=== PATIENT | male | born 2000 | race Caucasian/White ===

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

== ENCOUNTER 2024-12-03 09:26 | Emergency (ER) | payer BC, SELFPAY ==
--- NOTE | ~2024-12-03 | XR_ITS ---
Portable chest x-ray Comparison: None Clinical History: Chest pain Findings: Lungs are clear, without focal consolidation or pleural effusion. Cardiomediastinal silho uette is unremarkable. Bones and soft tissues are unremarkable. Impression: Normal chest. Reviewed, dictated and finalized at location . [facility] EPIDEMIOLOGIST Impression: Normal chest.
--- NOTE | ~2024-12-03 | CT_ITS ---
Non-contrast Head CT History: Dizziness, vertigo Technique: Axial non-contrast imaging of the brain was performed. Dose reduction technique was used on this scan by utilizing automated exposure control and iterative reconstruction technique. The dose -length product (DLP) was 605.33 mGy-cm. Findings: There is no evidence of intracranial hemorrhage, mass lesion, or acute infarct. Brain par enchyma appears normal. The ventricles and subarachnoid spaces are normal in size. The calvarium ap pears normal. The visualized paranasal sinuses and mastoid air cells are clear. Impression: No significant abnormality seen. Reviewed, dictated and finalized at location . [facility] Impression: No significant abnormality seen.
[2024-12-03 09:26] VITALS: BP 139/64; PULSE 92; RESP 16; TEMP 36.5; O2SAT 100
--- OUTSIDE RECORDS SUMMARY | 2024-12-03 09:34 | XMS_ITS ---
Author Organization [facility] Address [address] [place] [address] Care Team Providers Care Operating Room Surgical Technician Name Role Phone Jenna Robb Primary Care Provider [phone] Jenna Singh Unavailable [phone] Allergies Allergen (clinical drug ingredient) Drug/Non Drug Allergy documented on EMR Reaction Allergy Type Onset Date Status doxycycline Doxycycline sensitve stomach, nauseous Drug Allergy 09/16/2021 Active Pollen (e.g. tree, grass) swelling Allergy 03/15/2021 Active REASON FOR VISIT 1 month follow up Medications Medication SIG (Take, Route, Frequency, Duration) Notes Start Date End Date Status traZODone HCl 50 MG TAKE 1 TABLET BY MOUTH EVERYDAY AT BEDTIME; Duration: 90 Active Atovaquone-Proguanil HCl 250-100 MG 1 tablet Orally Once a day; Duration: 20 days Start 2 days before trip, continue daily while on the trip and 7 days after trip 11/13/2024 12/03/2024 Active traZODone HCl 100 MG 1 tablet at bedtime Orally Once a day; Duration: 30 days 11/20/2024 Active FLUoxetine HCl 20 MG 1 capsule Orally daily; Duration: 30 days 10/27/2024 Active ProAir RespiClick 108 (90 Base) MCG/ACT 2 Inhalation every 4-6 hours; Duration: 0 05/23/2024 Active Multivitamin oral; Duration: 0 *Pick strength-form from [employer] for eRX* 08/31/2021 Active ZyrTEC Allergy 10 MG 1 Oral every day; Duration: 0 03/15/2021 Active Vital Signs Temperature 98 degrees Fahrenheit 11/20/2024 Blood pressure systolic 128 mm Hg 11/20/19 25 Blood pressure diastolic 62 mm Hg 025 Heart Rate 85 /min 11/20/2024 Height 66.00 in 11/20/2024 Weight 167.9 lbs 11/20/2024 BMI 27.1 kg/m2 11/20/2024 Oximetry 99 % 11/20/2024 Height-cm 167.64 cm 11/20/2024 Weight-kg 76.16 kg 11/20/2024 Encounters Encounter Location Date Provider Diagnosis [address] [address] 11/20/2024 Jenna Singh Major depressive disorder, single episode, mild F32.0 ; Anxiety disorder, unspecified F41.9 and Chronic insomnia F51.04 Assessments Encounter Date Diagnosis (ICD Code) Assessment Notes Treatment Notes Treatment Clinical Notes 11/20/2024 Major depressive disorder, single episode, mild (ICD-10 - F32.0) 11/20/2024 Anxiety disorder, unspecified (ICD-10 - F41.9) - Anxiety and panic attacks persist, though less frequent with fluoxetine. No significant side effects reported except for initial nausea. - Discussed adding Hydroxyzine as needed QID to help with anxiety and to take one for sleep, but he is not ready to add another medicaton at this time. - Increase fluoxetine dose from 10 mg to 20 mg daily. Monitor for side effects.- Follow-up in one month to assess effectiveness and side effects. 11/20/2024 Chronic insomnia (ICD-10 - F51.04) - Trazodone at current dose not fully effective for sleep.- Increase trazodone dose to 100 mg at night. - Consider hydroxyzine or even gaunfacine as an alternative or adjunct if needed. - Discussed potential future use of benzodiazepines if necessary. Plan Of Treatment Medication Medication Name Sig Start Date Stop Date Notes traZODone HCl 100 MG 1 tablet at bedtime Orally Once a day; Duration: 30 days 11/20/2024 FLUoxetine HCl 20 MG 1 capsule Orally da mao; Duration: 30 days 10/27/2024 Treatment Notes Assessment Notes Anxiety disorder, unspecified - Anxiety and panic attacks persist, though less frequent with fluoxetine. No significant side effects reported except for initial nausea. - Discussed adding Hydroxyzine as needed QID to help with anxiety and to take one for sleep, but he is not ready to add another medicaton at this time. - Increase fluoxetine dose from 10 mg to 20 mg daily. Monitor for side effects.- Follow-up in one month to assess effectiveness and side effects. Chronic insomnia - Trazodone at current dose not fully effective for sleep.- Increase trazodone dose to 100 mg at night. - Consider hydroxyzine or even gaunfacine as an alternative or adjunct if needed. - Discussed potential future use of benzodiazepines if necessary. Next Appt Details Follow Up: 1 Month, Reason: Provider Name:Jenna Menchaca er, 12/18/2024 03:45:00 PM, [address] [facility], [place], [address], [phone] History and Physical Notes * Examination Category Sub-Category Detail Notes General Examination General appearance: alert, p leasant, well-nourished and in no acute distress Heart: regular rate and rhy thm without murmurs, gallops, clicks or rubs, S1 and S2 are normal and no S3 and S4 gallop Lungs: clear to auscultatio n bilaterally, with good air movement and no rales, rhonchi or wheezes Skin: warm and dry; good s kin turgor Psych: normal affect / mood , maintains good eye contact, with good judgement and insight, thought process is logical and goal directed without suidical ideation or delusions Progress Notes * Krystal CARREONOB:2000 ([age] yo M)Acc No.[id number]:11/20/2024 Progress Notes Patient: Doe Dickson Provider: Kevyn Singh NP :2000 A ge:24 Y S ex:Male Date:11/20/2024 Phone: Address:[address] [place], [place] [phone] Pcp:Jenna Robb Subjective: * Chief Complaints: * 1 . 1 month follow up. * HPI: H PI: Doe is here for a 1 month follow up for insomnia and anxiety/depression. He reports that sleep issues have not improved with the medication prescribed. Currently taking trazodone, 50 mg tablet at night, and fluoxetine, 10 mg daily. Noticed some improvement with fluoxetine but still experiences anxiety and panic attacks, particularly in large groups/crowds. Panic attacks have decreased in frequency but are still present. Experienced nausea for a few days after starting fluoxetine but no longer has this side effect. Consumes alcohol occasionally, having a beer now and then, but does not consume caffeine and does not smoke. He denies any suicidal or homicidal ideations. * ROS: S ee HPI. * Medical History: * Social History: M igrated Social History: M igrated Social History: Marital status:Single,Tobacco history:Never smoker. * Medications: T aking ZyrTEC Allergy 10 MG Tablet 1 Oral every day , Taking Multivitamin oral , Notes to Pharmacist: *Pick strength-form from [employer] for eRX*, Taking ProAir RespiClick 108 (90 Base) MCG/ACT Aerosol Powder Breath Activated 2 Inhalation every 4-6 hours , Taking FLUoxetine HCl 10 MG Capsule 1 capsule Orally daily , Taking Atovaquone-Proguanil HCl 250-100 MG Tablet 1 tablet Orally Once a day Start 2 days before trip, continue daily while on the trip and 7 days after trip, stop date 12/03/2024, Taking traZODone HCl 50 MG Tablet TAKE 1 TABLET BY MOUTH EVERYDAY AT BEDTIME , Medication List reviewed and reconciled with the patient * Allergies: D oxycycline: sensitve stomach, nauseous - Allergy - Onset Date 09/16/2021, Pollen (e.g. tree, grass): swelling - Allergy - Onset Date 03/15/2021. Allergies Verified. Objective: * Vitals: B P:128/62mm Hg, HR:85/min, Temp:98F, Oxygen sat %:99%, Ht: 66.00 in, Wt:167.9lbs, Wt-k.16 kg, Ht-cm: 167.64 cm, BMI:27.1Index, Body Surface Area: 1.88. * Examination: G eneral Examination: General appearance: a lert, pleasant, well-nourished and in no acute distress. Skin: w arm and dry; good skin turgor. Heart: r egular rate and rhythm without murmurs, gallops, clicks or rubs, S1 and S2 are normal and no S3 and S4 gallop. Lungs: c lear to auscultation bilaterally, with good air movement and no rales, rhonchi or wheezes. Psych: n ormal affect / mood, maintains good eye contact, with good judgement and insight, thought process is logical and goal directed without suidical ideation or delusions. Assessment: * Assessment: 1. M ajor depressive disorder, single episode, mild - F32.0 (Primary) S pecify :Src Problem: Mild major depression, single episode 2 . A nxiety disorder, unspecified - F41.9 S pecify :Src Problem: Anxiety 3 . C hronic insomnia - F51.04 Plan: * Treatment: 2. C hronic insomnia Start traZODone HCl Tablet, 100 MG, 1 tablet at bedtime, Orally, Once a day, 30 days, 30, Refills 0. Notes: - Trazodone at current dose not fully effective for sleep.- Increase trazodone dose to 100 mg at night. - Consider hydroxyzine or even gaunfacine as an alternative or adjunct if needed. - Discussed potential future use of benzodiazepines if necessary. * Follow Up: 1 Month Billing Information: * Visit Code: 46152 OFFICE VISIT MODERATE. * Procedure Codes: * [place] [employer] SALES BEAUTY ADVISOR Sign off status: Completed true * Provider: Kevyn Singh NP Date: 0 11/20/2024 Generated for Geneva mary/Beba/Satnam on: 0 12/03/2024 09:34 AM RETAIL COSMETICS SALES BEAUTY ADVISOR
--- OUTSIDE RECORDS SUMMARY | 2024-12-03 09:34 | XMS_ITS ---
Author Organization [facility] Address [address] [place] [id number] Care Team Providers Care Machinist Supervisor Name Role Phone Jenna Robb Primary Care Provider [phone] Medications Medication SIG (Take, Route, Frequency, Duration) Notes Start Date End Date Status Atovaquone-Proguanil HCl 250-100 MG 1 tablet Orally Once a day; Duration: 20 days Start 2 days before trip, continue daily while on the trip and 7 days after trip 11/13/2024 12/03/2024 Active Encounters Encounter Location Date Provider Diagnosis [address] [address] 11/13/2024 Jenna Robb Plan Of Treatment Medication Medication Name Sig Start Date Stop Date Notes Atovaquone-Proguanil HCl 250-100 MG 1 tablet Orally Once a day; Duration: 20 days 11/13/2024 12/03/2024 Next Appt Details Provider Name:Jenna Menchaca er, 12/18/2024 03:45:00 PM, [address] [place] [address], [phone], [phone] Progress Notes * ChikaGucci SHANKSeDOB:2000 ([age] yo M)Acc No.[id number]:11/13/2024 Patient: Doe NAJERA :2000 A ge:24 Y S ex:Male Phone: Address:[address] [place] [address], [phone] * Refills Start Atovaquone-Proguanil HCl Tablet, 250-100 MG, Orally, 20 Tablet, 1 tablet, Once a day, Start 2 days before trip, continue daily while on the trip and 7 days after trip, 20 days, Refills=0 Subjective: * Chief Complaints: * * Medical History: * Surgical History: * Hospitalization/Major Diagno stic Procedure: * Medications: Objective: * Physical Examination: Plan: * Treatment: * Procedure Codes: Billing Information: * Visit Code: * Procedure Codes: * true * Date: Generated for [place] mary/Beba/Satnam on: 12/03/2024 09:33 AM DISTRICT BRANCH MANAGER
--- OUTSIDE RECORDS SUMMARY | 2024-12-03 09:34 | XMS_ITS | Clinical Summary ---
Author Organization [facility] Address [facility] [place] [address] Care Team Providers Care Aeronautical Test Engineer Name Role Phone Jenna Robb MD Primary Care Provider Allergies Active Allergy Reactions Criticality Noted Date Comments Doxycycline Nausea and Vomiting Medium 01/06/2022 Medications sertraline 50 MG tablet Take 50 mg by mouth daily. 2 Active Cetirizine HCl 10 MG Cap cetirizine Active montelukast 10 MG tablet TAKE 1 TABLET(S) BY MOUTH AT BEDTIME 2 Active Multiple Vitamins-Farmers als (CENTRUM ADULTS OR) 1 Active pantoprazole EC 40 MG tablet Take 40 mg by mouth daily. 2 Active busPIRone 5 MG tablet TAKE 1 TABLET(S) BY MOUTH TWO TIMES A DAY NEEDED FOR ANXIETY 1 Active albuterol sulfate HFA 108 (90 Base) MCG/ACT inhaler albuterol sulfate HFA 90 mcg/actuation aerosol inhaler TAKE 2 PUFFS BY MOUTH EVERY 4 TO 6 HOURS NEEDED Active Spacer/Aero-Ho lding Chambers (BREATHERITE) Misc BreatheRite MDI Spacer Miscellaneous Spaceruse with albuterol [id number] in, DonnaActive 3 Active famotidine 10 MG tablet Take 10 mg by mouth 2 (two) times daily as needed for Heartburn. Active Active Problems No known active problems Social History Tobacco Use Types Packs/Day Years Used Date Smoking Tobacco: Never Smokeless Tobacco: Never Alcohol Use Standard Drinks/Week Comments Never 0 (1 standard drink = 0.6 oz pur e alcohol) Sex and Gender Information Value Date Recorded Sex Assigned at Not on file Legal Sex Male 8:09 AM CDT Gender Identity Not on file Sexual Orientation Not on file Last Filed Vital Signs Vital Sign Reading Time Taken Comments Blood Pressure 120/61 04/18/2022 12:48 PM CDT Pulse 81 04/18/2022 12:48 PM CDT Temperature 36.4 C (97.5 F) 04/18/2022 12:23 PM CDT Respiratory Rate 16 04/18/2022 12:48 PM CDT Oxygen Saturation 100% 04/18/2022 12:48 PM CDT Inhaled Oxygen Concentration - - Weight 70.3 kg (155 lb) 04/13/2022 10:05 AM CDT Height 165.1 cm (5' 5 ) 04/13/2022 10:05 AM CDT Body Mass Index 25.79 04/13/2022 10:05 AM CDT Plan of Treatment Health Maintenance Due Date Last Done Comments Annual Physical 2005 Hepatitis C 2020 DTaP, Tdap and Td Vaccines (7 - Td or Tdap) 04/02/2024 04/02/2014, 05/08/2007, 05/08/2007, Additional history exists COVID-19 Vaccine ( season) 2024 09/30/2021, 02/15/2021, 01/18/2021 Influenza Adult (#1) 2024 10/10/2020, 08/29/2019, 09/01/2018, Additional history exists Pneumococcal Vaccine: Pediatrics (0 to 5 Years) and At-Risk Patients (6 to 64 Years) Aged Out 2002 No longer eligible based on patient's age to complete this topic Hepatitis B Vaccines Completed 09/29/2003, 09/29/2003, 2002, Additional history exists HPV Vaccines Completed 12/05/2016, 06/15, 04/20/2016 Meningococcal Vaccine Completed 04/20/2020, 014 Meningococcal B Vaccine Completed 04/05/2021, 03/03 RSV Immunizations Under 20 Months Aged Out No longer eligible based on patient's age to complete this topic Insurance [facility] Care Teams Aeronautical Test Engineer Relationship Specialty Start Date End Date Jenna Robb MD [address] [place] [address] PCP - General FAMILY PRACTICE 01/06/22
--- OUTSIDE RECORDS SUMMARY | 2024-12-03 09:34 | XMS_ITS | Clinical Summary ---
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 Gender Identity Not on file Sexual Orientation Not on file Plan of Treatment Health Maintenance Due Date Last Done Comments Hepatitis C Virus (HCV) Screening 2000 Influenza Immunization (#1) 06/15/202409/15, 08/29/2019, 09/01/2018, Additional history exists SARS-COV-2 Immunization ( season) 2024 09/30/2021, 02/15/2021, 01/18/2021 Respiratory Syncytial Virus (RSV) Immunization (Adult) (1 - 1-dose 75+ series) 2077 Pneumococcal Immunization Combined Aged Out 2002 No longer eligible based on patient's age to complete this topic Hepatitis B Immunization Completed 003, 2002, 2002, Additional history exists DTaP/Tdap/Td Immunization Discontinued 2013, 05/08/2007, 09/29/2003, Additional history exists TdaP Immunization Completed 04/02/2014 Human Papillomavirus (HPV) Immunization Completed 12/05/2016, 06/29/2016, 04/20/2016 Meningococcal Immunization (ACWY) Completed 04/20/2020, 04/02/2014 Meningococcal B Immunization Completed 04/05/2021, 03/03/2021 Rotavirus Immunization Aged Out No lo nger eligible based on patient's age to complete this topic
--- OUTSIDE RECORDS SUMMARY | 2024-12-03 09:34 | XMS_ITS ---
Author Organization [facility] Address [address] [place] [id number] Care Team Providers Care Professor Of Philosophy Name Role Phone Jenna Robb Primary Care Provider [phone] Janice Quinonez Unavailable [phone] Allergies Allergen (clinical drug ingredient) Drug/Non Drug Allergy documented on EMR Reaction Allergy Type Onset Date Status doxycycline Doxycycline sensitve stomach, nauseous Drug Allergy 09/16/2021 Active Pollen (e.g. tree, grass) swelling Allergy 03/15/2021 Active Results Component Value Reference Range Notes influenza A & B card Reviewed date:11/13/2024 09:26:12 AM Interpretation:Influenza A positive Performing Lab: Notes/Report: Influenza A positive Covid Rapid Antigen BD Verit or Reviewed date:11/13/2024 09:26:36 AM Interpretation:Negative Performing Lab: Notes/Report: Negative REASON FOR VISIT spot 5 -- uri Medications Medication SIG (Take, Route, Frequency, Duration) Notes Start Date End Date Status ZyrTEC Allergy 10 MG 1 Oral every day; Duration: 0 03/15/2021 Active Pantoprazole Sodium 20 MG 1 Oral every day; Duration: 90 06/17/2024 12/13/2024 Not-Taking FLUoxetine HCl 10 MG 1 capsule Orally daily; Duration: 30 days 10/27/2024 Active Multivitamin oral; Duration: 0 *Pick strength-form from [employer] for eRX* 08/31/2021 Active ProAir RespiClick 108 (90 Base) MCG/ACT 2 Inhalation every 4-6 hours; Duration: 0 05/23/2024 Active Oseltamivir Phosphate 75 MG 1 capsule Orally Twice a day; Duration: 5 days 11/13/2024 Active traZODone HCl 50 MG 1 tablet at bedtime Orally Once a day; Duration: 30 days 10/27/2024 Active Vital Signs Temperature 100.1 degrees Fahrenheit Heart Rate 110 /min 11/13/2024 Respiratory Rate 18 /min 11/13/2024 Height 66.00 in 11/13/2024 Oximetry 97 % 11/13/2024 Height-cm 167.64 cm 11/13/2024 Encounters Encounter Location Date Provider Diagnosis [facility] [address] [place] [address] 11/13/2024 Janice Quinonez Influenza A J10.1 an d Mild intermittent asthma, uncomplicated J45.20 Assessments Encounter Date Diagnosis (ICD Code) Assessment Notes Treat ment Notes Treatment Clinical Notes 11/13/2024 Influenza A (ICD-10 - J10.1) Patient is day 2 of influenza, exam is good. Hx of asthma, will treat with ostelmivir. Discussed usual disease process and signs and symptoms of the flu. Discussed side effects fo ostelmivir. Push fluids, treat sx's with OTC medication. Call with any new or worrisome concerns 11/13/2024 Mild intermittent asthma, uncomplicated (ICD-10 - J45.20) -Hx of asthma. He has used inhaler over the course of this illness. Continue to use albuterol and call with any new or worrisome concerns Plan Of Treatment Medication Medication Name Sig Start Date Stop Date Notes Oseltamivir Phosphate 75 MG 1 capsule Or ally Twice a day; Duration: 5 days 11/13/2024 Treatment Notes Assessment Notes Influenza A Patient is day 2 of influenza, exam is good. Hx of asthma, will treat with ostelmivir. Discussed usual disease process and signs and symptoms of the flu. Discussed side effects fo ostelmivir. Push fluids, treat sx's with OTC medication. Call with any new or worrisome concerns Mild intermittent asthma, uncomplicated -Hx of asthma. He has used inhaler over the course of this illness. Continue to use albuterol and call with any new or worrisome concerns Next Appt Details Provider Name:Jenna Menchaca , 12/18/2024 03:45:00 PM, [address] [facility], [place], [address], [phone] History and Physical Notes * HPI (History of Present Illness) Category Sub-Category Detail Notes Cough The cough started Cough started at the beginning of October. Had no symptoms for a few days and then symptoms came back 2 days ago. Fever of 103.1 this morning from 1-5:30. Yesterday had a fever of 101 for a few hours. Pt is taking ibuprophen and muscinex. Headache to the back and front of his head, body aches, chills. The cough is described as Pt is coughing up fluid starting last night. Examination Category Sub-Category Detail Notes General Examination General appearance: alert, p leasant, well-nourished and in no acute distress Head: normocephalic, atrau matic Eyes: both eyes, conjuncti va clear Ears: both ears, auditory canal clear, tympanic membrane intact and clear Nose: nares patent, no les ions Throat: clear, no erythema, no exudate, pharynx normal Heart: regular rate and rhy thm without murmurs, gallops, clicks or rubs, S1 and S2 are normal and no S3 and S4 gallop Lungs: clear to auscultatio n bilaterally, with good air movement and no rales, rhonchi or wheezes Neurologic: alert and oriented Skin: skin is warm and dry , with no rashes, good skin turgor and normal hair distribution Lymph nodes: no cervical lymphade nopathy Psych: normal affect / mood Oral cavity: normal, mucosa moist , tongue is midline Progress Notes * Gucci CARREONeDOB:2000 ([age] yo M)Acc No.[id number]:11/13/2024 Patient: Doe Dickson Provider: Neelam Quinonez NP :2000 A ge:24 Y S ex:Male Date:11/13/2024 Phone: Address:[address] [place] [id number] Pcp:Jenna Robb Subjective: * Chief Complaints: * S pot 5 -- uri * HPI: C ough: The cough started C ough started at the beginning of October. Had no symptoms for a few days and then symptoms came back 2 days ago. Fever of 103.1 this morning from 1-5:30. Yesterday had a fever of 101 for a few hours. Pt is taking ibuprophen and muscinex. Headache to the back and front of his head, body aches, chills.. T he cough is described as P t is coughing up fluid starting last night. . * ROS: G eneral / Constitutional: Patient complains of F ever, aches, chills, body aches, cough started 2 days ago. * Medical History: Hypercalcemia Disease of appendix, unspecified Other hemorrhoids Acne, unspecified Unspecified abdominal pain Abnormal findings on diagnostic imaging of other abdominal regions, including retroperitoneum Depression, unspecified * Medications: T akingZyrTEC Allergy 10 MG Tablet 1 Oral every day Multivitamin oral , Notes to Pharmacist: *Pick strength-form from [employer] for eRX*ProAir RespiClick 108 (90 Base) MCG/ACT Aerosol Powder Breath Activated 2 Inhalation every 4-6 hours FLUoxetine HCl 10 MG Capsule 1 capsule Orally daily traZODone HCl 50 MG Tablet 1 tablet at bedtime Orally Once a day Taking ZyrTEC Allergy 10 MG Tablet 1 Oral every day Taking Multivitamin oral , Notes to Pharmacist: *Pick strength-form from [employer] for eRX*Taking ProAir RespiClick 108 (90 Base) MCG/ACT Aerosol Powder Breath Activated 2 Inhalation every 4-6 hours Taking FLUoxetine HCl 10 MG Capsule 1 capsule Orally daily Taking traZODone HCl 50 MG Tablet 1 tablet at bedtime Orally Once a day Not-TakingPantoprazole Sodium 20 MG Tablet Delayed Release 1 Oral every day , stop date 12/13/2024Medication List reviewed and reconciled with the patientNot- Taking Pantoprazole Sodium 20 MG Tablet Delayed Release 1 Oral every day , stop date 12/13/2024Medication List reviewed and reconciled with the patient * Allergies: D oxycycline: sensitve stomach, nauseous - Allergy - Onset Date 09/16/2021ollen (e.g. tree, grass): swelling - Allergy - Onset Date 03/15/2021yesAllergies Verified. Objective: * Vitals: H R:110/min, RR:18/min, Temp:100.1F, Oxygen sat %:97%, Ht: 66.00 in, Ht-cm: 167.64 cm. * Examination: G eneral Examination: General appearance: a lert, pleasant, well-nourished and in no acute distress. Head: n ormocephalic, atraumatic. Eyes: b oth eyes, conjunctiva clear. Ears: b oth ears, auditory canal clear, tympanic membrane intact and clear. Nose: n luzma patent, no lesions. Oral cavity: n ormal, mucosa moist, tongue is midline. Throat: c lear, no erythema, no exudate, pharynx normal.? Lymph nodes: n o cervical lymphadenopathy. Skin: s kin is warm and dry, with no rashes, good skin turgor and normal hair distribution. Heart: r egular rate and rhythm without murmurs, gallops, clicks or rubs, S1 and S2 are normal and no S3 and S4 gallop. Lungs: c lear to auscultation bilaterally, with good air movement and no rales, rhonchi or wheezes. Neurologic: a lert and oriented. Psych: n ormal affect / mood. Assessment: * Assessment: 1. I nfluenza A - J10.1 (Primary) 2 . M ild intermittent asthma, uncomplicated - J45.20 S pecify :Src Problem: Mild intermittent extrinsic asthma without complication Plan: * Treatment: 2. M ild intermittent asthma, uncomplicated Notes: -Hx of asthma. He has used inhaler over the course of this illness. Continue to use albuterol and call with any new or worrisome concerns * Procedure Codes: 8 7426 COVID 19 Rapid Antigen BD [id number] FLU CARD [id number] Flu Card B Billing Information: * Visit Code: 63883 OFFICE VISIT LOW. * Procedure Codes: 68842 COVID 19 Rapid Antigen BD Veritor. [address]55 FLU CARD A. 19024 Flu Card B. * OR HADOOP DEVELOPER Sign off status: Completed true * Provider: Neelam Quinonez NP Date: 0 11/13/2024 Generated for Geneva mary/Beba/Yolisitting on: 0 12/03/2024 09:34 AM SENIOR HADOOP DEVELOPER
--- OUTSIDE RECORDS SUMMARY | 2024-12-03 09:34 | XMS_ITS | Patient Health Record ---
Author Organization [facility] Address [address] [place] [address] Care Team Providers Care Supervisor Matrix Name Role Phone Jenna Robb MD Primary Care Provider Unavail able [place] KEITA, DAVID Unavailable ALLERGIES Allergen (clinical drug ingredient) Drug/Non Drug Allergy documented on EMR Reaction Allergy Type Onset Date Status doxycycline Doxycycline stomach upset, nausea Drug Allergy Active REASON FOR REFERRAL No Information MEDICATIONS Medication SIG (Take, Route, Frequency, Duration) Notes Start Date End Date Status Acne Cleanser Maximum Strength Active busPIRone HCl 5 MG 1 tablet Orally Twic e a day Active Albuterol Sulfate HFA 108 (90 Base) MCG/ACT 1 puff as needed Inhalation every 4 hrs Active Pantoprazole Sodium 40 MG 1 tablet Orall y Once a day Active ZyrTEC Allergy 10 MG 1 tablet Orally Onc e a day Active Montelukast Sodium 10 MG 1 tablet Orally Once a day Active Sertraline HCl 50 MG 1 tablet Orally Onc e a day Active Multivitamin - 1 tablet Orally Once a day Active PLAN OF TREATMENT Pending Test Test Name Order Date Ultrasound : Right Upper Quadrant 2021 HIDA Scan 04/05/2022 Insurance Providers Payer Name Payer Address Payer Phone Subscriber Number Group Number Insured Name Patient Relationship to Insured Coverage Start Date Coverage End Date [facility] PPO [address] [place], [place] [id number] Doe Meyer Self - patient is the insured MEDICAL (GENERAL) HISTORY Medical History History ICD Code GERD anxiety appendicolith hx of angina depression dysuria enteritis epididymitis gastroitis intercostal muscle pain internal hemorrhoids lower abd pain pectoralis muscle strain pulmonary nodiule hx of scabies hx of warts asthma Surgical History Surgery Date(Month/Year) repair hernia slidin09/06/21 maria ines thurman ssist with mesh myringotomy
--- NOTE | 2024-12-03 09:36 | ED_ITS ---
HPI - Dizziness General Chief Complaint: Dizziness Stated Complaint: dizzy Time Seen by Provider: 12/03/24 09:27 Source: patient Mode of arrival: ambulatory Limitations: no limitations History of Present Illness HPI Narrative: 24-year-old male with a history of asthma presents to the ED with a 4 hour history of -- vertigo which started this morning. This is worse on standing up. No ear complaints. -- Nausea without any vomiting. No diarrhea. No abdominal pain. -- Left chest discomfort. The patient denies any pain. No radiation of the discomfort. No relation to exercise. MD elicited complaint: vertigo Onset (ago): hour(s) ( 6 hours) Timing: sudden onset Severity: severe Description: room spinning Context: change in body position History of similar symptoms: No Exacerbating factors: nothing Relieving factors: nothing Associated symptoms: denies other symptoms and nausea Related Data Home Medications ?Medication ?Instructions ?Recorded ?Confirmed ?Last Taken ?Type cetirizine 10 mg tablet (Zyrtec) 10 mg PO DAILY PRN ALLERGIES 08/31/21 09/21/21 Unknown History montelukast 10 mg tablet 10 mg PO DAILY 08/31/21 09/21/21 Unknown History (Singulair) multivitamin 1 tablet PO DAILY 08/31/21 09/21/21 Unknown History ondansetron HCl 4 mg tablet 4 mg PO Q8H 08/31/21 09/21/21 Unknown History (Zofran) Allergies Allergy/AdvReac Type Severity Reaction Status Date / Time No Known Allergies Allergy Verified 09/21/21 13:24 Review of Systems 2 Review of Systems: All systems reviewed & are unremarkable except as noted in HPI and below Constitutional: Constitutional: Reports as per HPI, Reports no additional constitutional complaints and Reports weakness Eyes: Eyes: Reports as per HPI and Reports no additional eye complaints ENT: Reports system reviewed and no additional complaints, except as documented and Reports as per HPI Cardiovascular: Cardiovascular: Reports as per HPI and Reports no additional cardiovascular complaints Respiratory: Respiratory: Reports as per HPI and Reports no additional respiratory complaints Gastrointestinal: Gastrointestinal: Reports as per HPI and Reports no additional gastrointestinal complaints Genitourinary: Genitourinary: Reports no additional male genitourinary complaints and Reports as per HPI Musculoskeletal: Musculoskeletal: Reports no additional musculoskeletal complaints and Reports as per HPI Integumentary/Breasts: Skin/Breast: Reports system reviewed and no additional complaints, except as docu and Reports as per HPI Neurologic: Reports system reviewed and no additional complaints, except as documented and Reports as per HPI Psychiatric: Psychiatric: Reports no additional psychiatric complaints and Reports as per HPI Endocrine: Endocrine: Reports no additional endocrine complaints and Reports as per HPI Hematologic/Lymphatic: Hematologic/Lymphatic: Reports no additional hematologic/lymphatic complaints and Reports as per HPI Allergic/Immunologic: Allergic/Immunologic: Reports no additional allergic/immunologic complaints and Reports as per HPI [facility] Past Medical History Medical History Asthma Surgical History Surgical History H/O inguinal hernia repair Robotic assisted left inguinal hernia repair with mesh 09/06/21 Family History Family History Father Hypertension Cholecystitis Social History Social History Smoking status: Never smoker Alcohol intake: never Substance use: never Substance use type: does not use Living arrangements: with family Occupation/Education: student Spiritual care concerns: No Exam 2 Narrative: not orthostatic Const: General: ill appearing Orientation/consciousness: patient oriented x3 Limitations: no limitations HENMT: Head: normal to inspection Ears: TM's normal bilaterally F kathi/Nose/Sinus: Normal external nose present Face and sinus: normal facial exam Mouth: Yes Normal oral and palatal mucosa present Throat: posterior oropharynx normal Eyes: Conjunctivae: conjunctivae normal Pupils: Equal, round and reactive pupils present EOM: EOMs intact bilaterally Direct Ophthalmoscopy: no photophobia Neck: Neck: normal visual inspection, no lymphadenopathy and no meningeal signs Chest: Chest palpation & inspection: normal inspection of the chest Resp: Effort & Inspection: normal respiratory effort Auscultation: clear to auscultation bilaterally Cardio: Rate: regular rate Rhythm: regular rhythm GI: Auscultation: normal bowel sounds Other: no tenderness/ rigidity /rebound. : General: Yes bladder normal to palpation and Yes no CVA tenderness Back/Spine/Pelvis: Back: no CVA tenderness Skin: General skin exam: normal color Rashes: no rashes Wounds: no wounds Neuro: General: patient oriented x3, moves all extremities, no meningeal signs, no focal motor deficits and CN's II-XI intact bilaterally Cranial nerves: Yes Nystagmus not present Speech: normal speech Extrem: General: normal to inspection and no clubbing, cyanosis or edema Psych: Mental Status: mental status grossly normal Affect: normal affect Attitude: cooperative Course Course Emergency Course: Vertigo-- CT of the head did not show any acute findings. No focal neuro deficit noted. Ear examination is unremarkable. chest pain. Normal troponin. EKG did not show any acute findings. MDM - Dizziness MDM Narrative Medical decision making narrative: vertigo chest pain Differential Diagnosis Differential diagnosis: Likely benign paroxysmal positional vertigo and orthostatic hypotension Lab Data Attestation: I reviewed the patient's lab results. 12/03/24 10:07 12/03/24 10:07 Labs: Lab Results 12/03/24 12/03/24 12/03/24 Range/Units 09:29 10:07 10:09 WBC 7.0 (4.8-10.8) K/mm3 RBC 5.42 (4.70-6.10) M/mm3 Hgb 15.7 (14.0-18.0) g/dL Hct 44.8 (40.0-54.0) % MCV 82.7 (78.0-102.0) fL MCH 29.0 (27.0-31.0) pg MCHC 35.0 (32-36) g/dL RDW 12.1 (11.6-14.4) % Plt Count 230 (150-420) K/mm3 MPV 7.9 L (8.7-11.0) fl Immature Gran % (Auto) 0.3 H (0.0-0.0) % Neut % (Auto) 69.1 (50.0-70.0) % Lymph % (Auto) 21.9 (18.0-42.0) % [place] % (Auto) 7.3 (2.0-11.0) % Eos % (Auto) 1.1 (1.0-6.0) % Baso % (Auto) 0.3 (0.0-1.0) % Lymph # (Auto) 1.54 (1.10-4.50) K/mm3 [place] # (Auto) 0.51 (0.10-0.90) K/mm3 Eos # (Auto) 0.08 (0.02-0.50) K/mm3 Baso # (Auto) 0.02 (0.00-0.10) K/mm3 Abs Immat Gran (auto) 0.02 H (0.00-0.00) K/mm3 Absolute Neuts (auto) 4.85 (1.70-7.20) K/mm3 Absolute Nucleated RBC 0.00 (0.00-0.00) K/mm3 Nucleated RBC % 0.0 (0-0.0) % PT 10.4 (9.50-12.1) Seconds INR 0.9 APTT 24.8 (23.9-30.70) Sec Sodium 141 (136-145) mmol/L Potassium 3.7 (3.5-5.1) mmol/L Chloride 104 (98-108) mmol/L Carbon Dioxide 27 (21-32) mmol/L Anion Gap 10 (4-12) mmol/L BUN 12 (7-18) mg/dL Creatinine 1.12 (0.70-1.30) mg/dL Estim Creat Clear Calc Not Reportable Estimated GFR > 60 (59 - ) Glucose 94 (70-99) mg/dL Calculated Osmolality 291 (285-295) mOsm/kg Calcium 9.4 (8.5-10.1) mg/dL Total Bilirubin 0.5 (0.00-1.00) mg/dL AST 12 L (15-37) U/L ALT 22 (16-63) U/L Alkaline Phosphatase 98 (46-116) U/L Troponin I 8.4 (0.00-60.4) ng/L NT-Pro-B Natriuret Pep 34 (0-125) pg/mL Total Protein 7.3 (6.4-8.2) g/dL Albumin 4.4 (3.4-5.0) g/dL Lipase 40 (16-77) U/L Urine Color Light yellow (Yellow) Urine Appearance Clear (Clear) Urine pH 7.0 (5.0-8.0) Ur Specific [place] 1.020 (1.010-1.020) Urine Protein Negative (Negative) Urine Glucose (UA) Negative (Negative) Urine Ketones Negative (Negative) Ur Blood (Man) Negative (Negative) Urine Nitrate Negative (Negative) Urine Bilirubin Negative (Negative) Urine Urobilinogen 0.2 (0.2-1.0) mg/dL Leukocyte Esterase Rfl Negative (Negative) BHARAT/UL Influenza A (RT-PCR) Negative (Negative) Influenza B (RT-PCR) Negative (Negative) RSV (RT-PCR) Negative (Negative) SARS-CoV-2 RNA (RT-PCR) Negative (Negative) ECG Data EKG #1: ECG completion date: 12/03/24 ECG completion time: 10:04 Interpretation: normal sinus rhythm. Normal axis. No ST elevation. Discharge Plan Discharge Clinical Impression: Benign paroxysmal positional vertigo Qualifiers: Laterality: unspecified laterality Qualified Code(s): H81.10 - Benign paroxysmal vertigo, unspecified ear Chest pain Qualifiers: Chest pain type: unspecified Qualified Code(s): R07.9 - Chest pain, unspecified Patient Disposition: Home, Self-Care Condition: Stable Instructions: Antibiotic Form, Benign Paroxysmal Positional Vertigo (ED), Chest Wall Pain (ED) Patient Language: Liberian Prescriptions: No Action ondansetron HCl [Zofran] 4 mg tablet 4 mg PO Q8H montelukast [Singulair] 10 mg tablet 10 mg PO DAILY cetirizine [Zyrtec] 10 mg tablet 10 mg PO DAILY PRN (Reason: ALLERGIES) multivitamin Tablet 1 tablet PO DAILY hydrocodone-acetaminophen 5-325 mg tablet 1 tablet PO Q6H PRN (Reason: pain) Qty: 30 0RF docusate sodium [Colace] 100 mg capsule 100 mg PO BID Qty: 30 0RF Follow-up/Referrals: Jenna Robb MD [Primary Care Provider] - Time of Disposition: 11:13
--- NOTE | 2024-12-03 09:54 | ECG_ITS ---
Test Date: 2024-12-03 10:04:22 Measurements Intervals [place] Rate: 97 P: 76 [place]: 132 QRS: 84 QRSD: 106 T: 32 QT: 344 QTc: 437 Interpretive Statements SINUS RHYTHM INCOMPLETE RIGHT BUNDLE BRANCH BLOCK NONSPECIFIC T-WAVE ABNORMALITY- INFERIOR LEADS BORDERLINE ECG No previous ECG available for comparison Electronically Signed On 12-03-2024 10:37:32 CUSTODIAL OPERATIONS MANAGER by Russ Glass D.O.
[2024-12-03] MEDS: PROCHLORPERAZINE EDISYLATE 10 MG/2 ML VIAL IM (10:02)
[2024-12-03 10:13] LABS: Basophils Absolute Auto 0.02 K/mm3 (0.00-0.10); Basophils Percent Auto 0.3 % (0.0-1.0); Eosinophils Absolute Auto 0.08 K/mm3 (0.02-0.50); Eosinophils Percent Auto 1.1 % (1.0-6.0); Hematocrit 44.8 % (40.0-54.0); Hemoglobin 15.7 g/dL (14.0-18.0); Immature Granulocyte Absolute 0.02 K/mm3 (0.00-0.00); Immature Granulocyte Percent A 0.3 % (0.0-0.0); Lymphocytes Absolute Auto 1.54 K/mm3 (1.10-4.50); Lymphocytes Percent Auto 21.9 % (18.0-42.0); Mean Corpuscular Volume 82.7 fL (78.0-102.0); Mean Platelet Volume 7.9 fl (8.7-11.0); Monocytes Absolute Auto 0.51 K/mm3 (0.10-0.90); Monocytes Percent Auto 7.3 % (2.0-11.0); Neutrophils Absolute Auto 4.85 K/mm3 (1.70-7.20); Neutrophils Percent Auto 69.1 % (50.0-70.0); Platelet Count Result 230 K/mm3 (150-420); Red Blood Count 5.42 M/mm3 (4.70-6.10); Red Cell Distribution Width 12.1 % (11.6-14.4)
[2024-12-03 10:17] LABS: Add Urine Microscopic? NO; Appearance Urine Clear (Clear); Bilirubin Urine Negative (Negative); Blood Urine Negative (Negative); Color Urine Light Yellow (Yellow); Glucose Urine UA Negative (Negative); Ketones Urine Negative (Negative); Leukocyte Esterase Ur Negative LEU/UL (Negative); Nitrate Urine Negative (Negative); Protein Urine Negative (Negative); Urobilinogen Urine 0.2 mg/dL (0.2-1.0)
[2024-12-03 10:37] LABS: INR 0.9; Partial Thromboplastin Time 24.8 Sec (23.9-30.70); Prothrombin Time 10.4 Seconds (9.50-12.1)
[2024-12-03 10:39] LABS: Alanine Aminotransferase 22 U/L (16-63); Albumin Level 4.4 g/dL (3.4-5.0); Alkaline Phosphatase 98 U/L (46-116); Anion Gap 10 mmol/L (4-12); Aspartate Amino Transferase 12 U/L (15-37); Bilirubin,Total 0.5 mg/dL (0.00-1.00); Blood Urea Nitrogen 12 mg/dL (7-18); Calcium 9.4 mg/dL (8.5-10.1); Carbon Dioxide 27 mmol/L (21-32); Chloride 104 mmol/L (98-108); Estimated Glomerular Filt Rate > 60; Glucose 94 mg/dL (70-99); Lipase 40 U/L (16-77); NT Pro B Type Natriuretic Pept 34 pg/mL (0-125); Osmolality Calculated 291 mOsm/kg (285-295); Potassium 3.7 mmol/L (3.5-5.1); Sodium 141 mmol/L (136-145); Total Protein 7.3 g/dL (6.4-8.2)
[2024-12-03 10:40] LABS: Influenza A QL RT-PCR Negative (Negative); Influenza B QL RT-PCR Negative (Negative); RSV RNA, RT-PCR Negative (Negative); SARS-CoV-2 RNA PCR Negative (Negative)
[2024-12-03 10:42] LABS: Troponin I 8.4 ng/L (0.00-60.4)
--- OUTSIDE RECORDS SUMMARY | 2024-12-03 10:44 | XMS_ITS | Patient Health Record ---
Author Organization [facility] Address [address] [place] [address] Care Team Providers Care Diet Aide Name Role Phone Jenna Robb Primary Care Provider [phone] Arash Knowles Unavailable [phone] Janice Quinonez Unavailable [phone] Jenna Singh Unavailable [phone] Migration, Provider Unavailable Unavailable Allergies Allergen (clinical drug ingredient) Drug/Non Drug Allergy documented on EMR Reaction Allergy Type Onset Date Status doxycycline Doxycycline sensitve stomach, nauseous Drug Allergy 09/16/2021 Active Pollen (e.g. tree, grass) swelling Allergy 03/15/2021 Active Results Component Value Reference Range Notes Covid Rapid Antigen BD Verit or Reviewed date:11/13/2024 09:26:36 AM Interpretation:Negative Performing Lab: Notes/Report: Negative influenza A & B card Reviewed date:11/13/2024 09:26:12 AM Interpretation:Influenza A positive Performing Lab: Notes/Report: Influenza A positive TSH Reviewed date:12/13/2023 12:00:00 AM Interpretation: Performing Lab: Notes/Report: TSH 0.620 uIU/mL Thyroxine (T4) Free, Direct, S Reviewed date:12/13/2023 12:00:00 AM Interpretation: Performing Lab: Notes/Report: T4,Free(Direct) 1.17 ng/dL Lipid Panel Reviewed date:12/13/2023 12:00:00 AM Interpretation: Performing Lab: Notes/Report: Cholesterol, Total 136 mg/dL HDL Cholesterol 38 mg/dL LDL Chol Calc (NIH) 80 mg/dL Triglycerides 97 mg/dL VLDL Cholesterol Micheal 18 mg/dL Hemoglobin A1c Reviewed date:12/13/2023 12:00:00 AM Interpretation: Performing Lab: Notes/Report: Hemoglobin A1c 5.0 % Comp. Metabolic Panel (14) Reviewed date:12/13/2023 12:00:00 AM Interpretation: Performing Lab: Notes/Report: A/G Ratio 2.9 Albumin 4.7 g/dL Alkaline Phosphatase 96 IU/L ALT (SGPT) 12 IU/L AST (SGOT) 12 IU/L Bilirubin, Total 0.6 mg/dL BUN 10 mg/dL BUN/Creatinine Ratio 9 Calcium 9.7 mg/dL Carbon Dioxide, Total 24 mmol/L Chloride 109 mmol/L Creatinine 1.06 mg/dL eGFR 102 mL/min/1.73 Globulin, Total 1.6 g/dL Glucose 90 mg/dL Potassium 4.4 mmol/L Protein, Total 6.3 g/dL Sodium 146 mmol/L CBC With Differential/Platel et Reviewed date:12/13/2023 12:00:00 AM Interpretation: Performing Lab: Notes/Report: Baso (Absolute) 0.0 x10E3/uL Basos 1 % Eos 1 % Eos (Absolute) 0.1 x10E3/uL Hematocrit 46.9 % Hemoglobin 15.9 g/dL Immature Grans (Abs) 0.0 x10E3/uL Immature Granulocytes 0 % Lymphs 28 % Lymphs (Absolute) 1.6 x10E3/uL MCH 29.7 pg MCHC 33.9 g/dL MCV 88 fL Monocytes 8 % Monocytes(Absolute) 0.5 x10E3/uL Neutrophils 62 % Neutrophils (Absolute) 3.5 x10E3/uL Platelets 247 x10E3/uL RBC 5.35 x10E6/uL RDW 12.8 % WBC 5.7 x10E3/uL Reason For Referral No Information Medications Medication SIG (Take, Route, Frequency, Duration) [...] Multivitamin oral; Duration: 0 *Pick strength-form from Clicker for eRX* 08/31/2021 Active ZyrTEC Allergy 10 MG 1 Oral every day; Duration: 0 03/15/2021 Active Immunizations Vaccine Route Administration Date Status Comme nts DTaP Unknown 2002 Administered ,sourcename : Historical information -from other registry Source VFC Code: : DTaP Unknown 2002 Administered Source VFC Code: : DTaP Unknown 02/16/2003 Administered ,sourcename : Historical information -from other registry Source VFC Code: : DTaP Unknown 09/29/2003 Administered Source VFC Code: : DTaP Unknown 05/08/2007 Administered ,sourcename : Historical information -from other registry Source VFC Code: : Hep A, ped/adol, 2 dose Unknown 2002 Administered Source VFC Code: : Hep A, ped/adol, 2 dose Unknown 03/28/2011 Administered ,sourcename : Historical information -from other registry Source VFC Code: : Hep A, ped/adol, 2 dose Unknown 10/10/2011 Administered ,sourcename : Historical information -from other registry Source VFC Code: : Hep B, adolescent or pediatric (11-19), 3 dose schedule Unknown 2002 Administered Source VFC Code: : Hep B, adolescent or pediatric (11-19), 3 dose schedule Unknown 2002 Administered ,sourcename : Historical information -from other registry Source VFC Code: : Hep B, adolescent or pediatric (11-19), 3 dose schedule Unknown 2002 Administered ,sourcename : Historical information -from other registry Source VFC Code: : Hep B, adolescent or pediatric (11-19), 3 dose schedule Unknown 09/29/2003 Administered ,sourcename : Historical information -from other registry Source VFC Code: : Hib (PRP-T), 4 dose schedule Unknown 2002 Administered ,sourcename : Historical information -from other registry Source VFC Code: : Hib (PRP-T), 4 dose schedule Unknown 2002 Administered ,sourcename : Historical information -from other registry Source VFC Code: : Hib (PRP-T), 4 dose schedule Unknown 09/29/2003 Administered ,sourcename : Historical information -from other registry Source VFC Code: : Hib-Hep B Unknown 2002 Administered Source VFC Code: : Hib-Hep B Unknown 2002 Administered Source VFC Code: : Hib-Hep B Unknown 09/29/2003 Administered Source VFC Code: : HPV (human papillomavirus), quadrivalent, 3 dose schedule IM Intramuscular 04/20/2016 Administered Source VFC Code: : HPV (human papillomavirus), quadrivalent, 3 dose schedule IM Intramuscular 12/05/2016 Administered Source VFC Code: : HPV9 (human papillomavirus), nonavalent Unknown 04/20/2016 Administered ,sourcename : Historical information -from other registry Source VFC Code: : HPV9 (human papillomavirus), nonavalent IM Intramuscular 06/29/2016 Administered Source VFC Code: : HPV9 (human papillomavirus), nonavalent Unknown 12/05/2016 Administered ,sourcename : Historical information -from other registry Source VFC Code: : Influenza, MDCK, quadrivalent, PF IM Intramuscular 08/12/2016 Administered Source VFC Code: : Influenza, quadrivalent (IIV4), split virus, 6-35 months dosage IM Intramuscular 09/01/2018 Administered Source VFC Code: : Influenza, quadrivalent (IIV4), split virus, 6-35 months dosage IM Intramuscular 08/29/2019 Administered Source VFC Code: : Influenza, quadrivalent (IIV4), split virus, 6-35 months dosage IM Intramuscular 10/10/2020 Administered Source VFC Code: : Influenza, seasonal, injectable, preservative free, 3 yrs and above IM Intramuscular 07/31/2015 Administered Source VFC Code: : IPV Unknown 2002 Administered Source VFC Code: : IPV Unknown 2002 Administered ,sourcename : Historical information -from other registry Source VFC Code: : IPV Unknown 02/16/2003 Administered Source VFC Code: : IPV Unknown 05/08/2007 Administered ,sourcename : Historical information -from other registry Source VFC Code: : Meningococcal MCV4P Unknown 04/02/2014 Administered Source VFC Code: : Meningococcal MCV4P Unknown 04/20/2020 Administered Source VFC Code: : MMR Unknown 07/07/2003 Administered ,sourcename : Historical information -from other registry Source VFC Code: : MMR Unknown 05/08/2007 Administered ,sourcename : Historical information -from other registry Source VFC Code: : MMRV Unknown 05/08/2007 Administered Source VFC Code: : Moderna Covid-19 Vaccine 1st dose IM Intramuscular 01/18/2021 Administered Source VFC Code: : Moderna Covid-19 Vaccine 1st dose IM Intramuscular 02/15/2021 Administered Source VFC Code: : Moderna Covid-19 Vaccine 1st dose Unknown 09/30/2021 Administered ,sourcename : Historical information -source unspecified Source VFC Code: : Pfizer-Biontech Covid-19 Vaccine 1st dose Unknown 01/18/2021 Administered ,sourcename : Historical information -from other registry Source VFC Code: : Pfizer-Biontech Covid-19 Vaccine 1st dose IM Intramuscular 09/30/2021 Administered Source VFC Code: : Pneumococcal conjugate PCV 13 Unknown 2002 Administered ,sourcename : Historical information -from other registry Source VFC Code: : Pneumococcal conjugate PCV 7 Unknown 2002 Administered Source VFC Code: : Tdap Unknown 04/02/2014 Administered ,sourcename : Historical information -from other registry Source VFC Code: : Varicella Unknown 06/07/2005 Administered Source VFC Code: : Varicella Unknown 05/08/2007 Administered ,sourcename : Historical information -from other registry Source VFC Code: : Problems Problem Type SNOMED Code ICD Code Onset Dates Problem Status W/U Status Risk Notes Problem Mild intermittent asthma (762404817) Mild intermittent asthma, uncomplicated (J45.20) 024 Active confirmed Problem Gastro-esophageal reflux disease without esophagitis (359034766) Gastro-esophageal reflux disease without esophagitis (K21.9) 022 Active confirmed Problem Allergic rhinitis (05506096) Allergic rhinitis, cause unspecified (477.9) 019 Problem resolved confirmed Problem Heart murmur (586510646) Undiagnosed cardiac murmurs (785.2) 016 Problem resolved confirmed Problem Verruca vulgaris (83910029) Viral wart, unspecified (B07.9) 021 Problem resolved confirmed Problem Scabies (324288378) Scabies (B86) Problem resolved confirmed Problem Acute atopic conjunctivitis (06098175) Acute atopic conjunctivitis, unspecified eye (H10.10) Problem resolved confirmed Problem Allergic rhinitis (02771978) Allergic rhinitis, unspecified (J30.9) Problem resolved confirmed Problem Gastroduodenitis (301964795) Gastritis, unspecified, without bleeding (K29.70) Problem resolved confirmed Problem Cardiac murmur, unspecified (R01.1) Problem resolved confirmed Problem Cough (78969998) Cough (R05) Problem resolved confirmed Problem Epididymitis (75375503) Epididymitis (N45.1) Problem resolved confirmed Problem Acne vulgaris (67795899) Acne vulgaris (L70.0) Problem resolved confirmed Problem Non-infective enteritis and colitis (861045470) Noninfective gastroenteritis and colitis, unspecified (K52.9) Problem resolved confirmed Problem Seasonal allergic rhinitis (348449489) Other seasonal allergic rhinitis (J30.2) Problem resolved confirmed Problem Vaccination needed (977914170936018) Need for prophylactic vaccination and inoculation, Other viral diseases (V04.89) Problem resolved confirmed Problem Cough (08920989) Cough (786.2) Problem resolved confirmed Problem Acne (15988199) Other acne (706.1) Problem resolved confirmed Problem Anxiety disorder (230310503) Anxiety disorder, unspecified (F41.9) Active confirmed Problem Mild major depression, single episode (08691432) Major depressive disorder, single episode, mild (F32.0) Active confirmed Problem Lower abdominal pain (85566741) Lower abdominal pain, unspecified (R10.30) Problem resolved confirmed Problem Dysuria (43872290) Dysuria (R30.0) Problem resolved confirmed Problem Strain of muscle of anterior chest wall (disorder) (472798364) Strain of muscle and tendon of front wall of thorax, initial encounter (S29.011A) 021 Problem resolved confirmed Problem Muscle pain (67765795) Myalgia, other site (M79.18) 021 Problem resolved confirmed Problem Vaccination given (847026055) Encounter for immunization (Z23) 016 Problem resolved confirmed Problem Child health medical examination (065091157) Encounter for routine child health examination without abnormal findings (Z00.129) 018 Problem resolved confirmed Problem Histopathology finding (929449294) Unspecified abnormal finding in specimens from other organs, systems and tissues (R89.9) 023 Inactive confirmed Problem Solitary pulmonary nodule (012835764) Solitary pulmonary nodule (R91.1) 021 Active confirmed Vital Signs Heart Rate 85 /min 11/20/2024 Temperature 98 degrees Fahrenheit 11/20/2024 Respiratory Rate 18 /min 11/13/2024 Height-cm 167.64 cm 11/20/2024 Oximetry 99 % 11/20/2024 Blood pressure diastolic 62 mm Hg 11/20/2024 Weight-kg 76.16 kg 11/20/2024 Height 66.00 in 11/20/2024 Blood pressure systolic 128 mm Hg 11/20/2024 Weight 167.9 lbs 11/20/2024 BMI 27.1 kg/m2 11/20/2024 Encounters Encounter Location Date Provider Diagnosis [address] [address] 12/12/2023 Provider Migration Encounter for general adult medical examination with abnormal findings Z00.01 and Major depressive disorder, single episode, mild F32.[address] [address] 12/13/2023 Janice Beckert Chest pain, unspecified R07.9 ; Viral wart, unspecified B07.9 ; Lower abdominal pain, unspecified R10.30 ; Nausea R11.0 ; Dysuria R30.0 ; Mild intermittent asthma, uncomplicated J45.20 ; Other specified postprocedural states Z98.890 ; Scabies B86 ; Acute atopic conjunctivitis, unspecified eye H10.10 ; Gastritis, unspecified, without bleeding K29.70 ; Strain of muscle and tendon of front wall of thorax, initial encounter S29.011A ; Unspecified abnormal finding in specimens from other organs, systems and tissues R89.9 ; Epididymitis N45.1 ; Myalgia, other site M79.18 ; Noninfective gastroenteritis and colitis, unspecified K52.9 and Encounter for general adult medical examination with abnormal findings Z00.[address] [address] 05/23/2024 Jenna Robb Shortness of breath R06.02 ; Nausea R11.0 and Chest pain, unspecified R07.[address] [address] 10/27/2024 Jenna Singh Encounter for genera l adult medical examination without abnormal findings Z00.00 ; Anxiety disorder, unspecified F41.9 ; Chronic insomnia F51.04 ; Mild intermittent asthma, uncomplicated J45.20 and Gastro-esophageal reflux disease without esophagitis K21.[address] [address] 11/13/2024 Janice Quinonez Influenza A J10.1 an d Mild intermittent asthma, uncomplicated J45.[address] [address] 11/20/2024 Jenna Singh Major depressive disorder, single episode, mild F32.0 ; Anxiety disorder, unspecified F41.9 and Chronic insomnia F51.[address] [address] 09/13/2024 Provider Migration [address] [address] 09/14/2024 Provider Migration [address] [address] 10/22/2024 Jenna Singh Encounter for genera l adult medical examination without abnormal findings Z00.[address] [address] 11/13/2024 Jenna Robb Assessments Encounter Date Diagnosis (ICD Code) Assessment Notes Treatment Notes Treatment Clinical Notes 10/22/2024 Encounter for genera l adult medical examination without abnormal findings (ICD-10 - Z00.00) 10/27/2024 Anxiety disorder, unspecified (ICD-10 - F41.9) - Anxiety has worsened over the last month, but has been going on for one year, particularly in crowds and at work, with episodes resembling panic attacks at times. Likely related to a past work incident one year ago. - Start fluoxetine (Prozac) at a low dose 10 mg once daily in the morning. - Follow up in one month to assess effectiveness and side effects.- If fluoxetine is not sufficient, consider increasing dose or even adding hydroxyzine as needed for high anxiety moments.- Potential risks/side effects include headaches and nausea. Rare risks include hallucinations and increased thoughts of suicide or homicide. Patient advised to seek help if experiencing these symptoms. Do not abruptly stop the medication without consulting the doctor. 11/13/2024 Influenza A (ICD-10 - J10.1) Patient is day 2 of influenza, exam is good. Hx of asthma, will treat with ostelmivir. Discussed usual disease process and signs and symptoms of the flu. Discussed side effects fo ostelmivir. Push fluids, treat sx's with OTC medication. Call with any new or worrisome concerns 11/20/2024 Major depressive disorder, single episode, mild [...] month to assess effectiveness and side effects. 10/27/2024 Encounter for genera l adult medical examination without abnormal findings (ICD-10 - Z00.00) - Vital Signs stable. - Encouraged to get Tdap vaccine, over due. He is going to check with work to see if he had this recently. - Recenty labs all look good, no abnormals noted. 12/12/2023 Major depressive disorder, single episode, mild (ICD-10 - F32.0) 12/12/2023 Encounter for genera l adult medical examination with abnormal findings (ICD-10 - Z00.01) 12/13/2023 Viral wart, unspecified (ICD-10 - B07.9) 12/13/2023 Scabies (ICD-10 - B86) 12/13/2023 Acute atopic conjunctivitis, unspecified eye (ICD-10 - H10.10) 12/13/2023 Mild intermittent asthma, uncomplicated (ICD-10 - J45.20) 12/13/2023 Gastritis, unspecified, without bleeding (ICD-10 - K29.70) 12/13/2023 Noninfective gastroenteritis and colitis, unspecified (ICD-10 - K52.9) 12/13/2023 Epididymitis (ICD-10 - N45.1) 12/13/2023 Chest pain, unspecified (ICD-10 - R07.9) 12/13/2023 Lower abdominal pain , unspecified (ICD-10 - R10.30) 12/13/2023 Nausea (ICD-10 - R11.0) 12/13/2023 Dysuria (ICD-10 - R30.0) 12/13/2023 Unspecified abnormal finding in specimens from other organs, systems and tissues (ICD-10 - R89.9) 12/13/2023 Strain of muscle and tendon of front wall of thorax, initial encounter (ICD-10 - S29.011A) 12/13/2023 Encounter for genera l adult medical examination with abnormal findings (ICD-10 - Z00.01) 12/13/2023 Myalgia, other site (ICD-10 - M79.18) 12/13/2023 Other specified postprocedural states (ICD-10 - Z98.890) 05/23/2024 Shortness of breath (ICD-10 - R06.02) 05/23/2024 Chest pain, unspecified (ICD-10 - R07.9) 05/23/2024 Nausea (ICD-10 - R11.0) 10/27/2024 Chronic insomnia (ICD-10 - F51.04) - Difficulty staying asleep, waking up multiple times a night.- Start trazodone at bedtime to help with sleep. Take 30 to 60 minutes before bedtime. Avoid operating machinery after taking.- Risks and side effects: Potential for next-day drowsiness. Advised to avoid alcohol and be cautious with activities requiring alertness. 11/13/2024 Mild intermittent asthma, uncomplicated (ICD-10 - J45.20) -Hx of asthma. He has used inhaler over the course of this illness. Continue to use albuterol and call with any new or worrisome concerns 11/20/2024 Chronic insomnia (ICD-10 - F51.04) - Trazodone at current dose not fully effective for sleep.- Increase trazodone dose to 100 mg at night. - Consider hydroxyzine or even gaunfacine as an alternative or adjunct if needed. - Discussed potential future use of benzodiazepines if necessary. 10/27/2024 Mild intermittent asthma, uncomplicated (ICD-10 - J45.20) - Chronic, stable. - Continue inhaler as needed. 10/27/2024 Gastro-esophageal reflux disease without esophagitis (ICD-10 - K21.9) - GERD is chronic, stable. - Continue current dose of PPI as directed and avoid food/drink triggers, decrease stress/anxiety. Plan Of Treatment Pending Test Test Name Order Date Thyroxine (T4) 10/22/2024 TSH 10/22/2024 CBC With Differential/Platelet Lipid Panel 10/22/2024 Comp. 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
--- OUTSIDE RECORDS SUMMARY | 2024-12-03 10:44 | XMS_ITS | Clinical Summary ---
Author Organization [facility] Address [facility] [place] [address] Care Team Providers Care Drop Pit Worker Name Role Phone Jenna Robb MD Primary Care Provider Allergies Active Allergy Reactions Criticality Noted Date Comments Doxycycline Nausea and Vomiting Medium 01/06/2022 Medications sertraline 50 MG tablet Take 50 mg by mouth daily. 2 Active Cetirizine HCl 10 MG Cap cetirizine Active montelukast 10 MG tablet TAKE 1 TABLET(S) BY MOUTH AT BEDTIME 2 Active Multiple Vitamins-[place] als (CENTRUM ADULTS OR) 1 Active pantoprazole [...] BreatheRite MDI Spacer Miscellaneous Spaceruse with albuterol [id number] in, DonnaActive 3 Active famotidine 10 MG [...] patient's age to complete this topic Insurance [facility] Care Teams Drop Pit Worker Relationship Specialty Start Date End Date Jenna Robb MD [address] [place] [address] PCP - General FAMILY PRACTICE 01/06/22
--- OUTSIDE RECORDS SUMMARY | 2024-12-03 10:44 | XMS_ITS | Clinical Summary ---
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
[2024-12-03 11:37] VITALS: BP 114/54; PULSE 76; RESP 20; TEMP 36.7; O2SAT 97
== END 2024-12-03 11:46 | disposition home or self-care (01) ==
PROVIDERS: Emergency Provider Internal Medicine Critical Care Medicine; PCP Family Medicine
DX: H81.10 Benign paroxysmal vertigo, unspecified ear (principal); R07.9 Chest pain, unspecified; J45.901 Unspecified asthma with (acute) exacerbation; Z20.822 Contact with and (suspected) exposure to COVID-19
CPT/HCPCS: 36415; 70450; 71045; 80053; 81003; 83690; 83880; 84484; 85025; 85610; 85730; 87637; 93005; 96372; 99284; J0780